=== PATIENT | male | born 1980 | race African-American/Black ===

== ENCOUNTER 2019-02-11 03:26 | Emergency (ER) | payer SELFPAY ==
[~2019-02-11] VITALS: Ht 182.9 cm; Wt 82.0 kg
[2019-02-11 03:45] VITALS: BP 158/96
== END 2019-02-11 03:54 | disposition left against medical advice (07) ==
LOC: ER 03:26
DX: Z53.21 Procedure and treatment not carried out due to patient leaving prior to being seen by health care provider (principal); F17.200 Nicotine dependence, unspecified, uncomplicated

== ENCOUNTER 2019-02-11 04:46 | Emergency (ER) | payer SELFPAY ==
[~2019-02-11] VITALS: Ht 185.4 cm; Wt 80.0 kg
[2019-02-11 05:13] LABS: BASOPHILS % 0.5 % (0.0-2.0); EOSINOPHILS % 0.3 % (0.0-5.0); HEMATOCRIT. 51.8 % (42.0-52.0); LYMPHOCYTES % 31.9 % (20.0-50.0); MEAN CORPUSCULAR HEMOGLOBIN 27.9 pg (28.0-32.0); MEAN CORPUSCULAR VOLUME 90.4 fL (80.0-94.0); MEAN PLATELET VOLUME 9.5 fl (7.4-10.4); MONOCYTES % 8.1 % (2.0-8.0); NEUTROPHILS % 59.2 % (40.0-76.0); PLATELET 265 x1000/uL (130-400); RED BLOOD CELL COUNT 5.73 mill/uL (4.7-6.1); RED CELL DISTRIBUTION WIDTH 14.9 % (11.6-14.6)
[2019-02-11] MEDS ORDERED: LORAZEPAM 2MG/ML CPJ IV ONE (05:15)
[2019-02-11 05:20] LABS: CHLORIDE 102 mEq/L (98-107)
[2019-02-11] MEDS ORDERED: SODIUM CHLORIDE 0.9% 1,000 ML IV ONE ×2 (05:21→05:41)
[2019-02-11 05:27] LABS: ETHANOL BLOOD < 10 mg/dL
[2019-02-11] MEDS ORDERED: DIPHENHYDRAMINE 50MG/ML VIAL IV ONE (05:30)
[2019-02-11 05:54] LABS: CLARITY URINE CLOUDY (CLEAR); COLOR URINE YELLOW (YELLOW); KETONES URINE TRACE (NEGATIVE); LEUKOCYTE ESTERASE URINE NEGATIVE (NEGATIVE); NITRITE URINE NEGATIVE (NEGATIVE); OCCULT BLOOD URINE 1+ (NEGATIVE); PH URINE 5.5 (4.5-8.0); PROTEIN URINE 1+ (NEGATIVE); SPECIFIC GRAVITY URINE 1.021 (1.005-1.030)
[2019-02-11 06:09] LABS: *BARBITURATES SCREEN URINE NEGATIVE (NEGATIVE)
[2019-02-11 06:10] LABS: *AMPHETAMINES SCREEN URINE PRESUMTIVE POSITIVE (NEGATIVE); *BENZODIAZEPINES SCREEN URINE NEGATIVE (NEGATIVE); *COCAINE SCREEN URINE PRESUMTIVE POSITIVE (NEGATIVE); METHADONE URINE SCREEN NEGATIVE (NEGATIVE); OPIATES URINE SCREEN NEGATIVE (NEGATIVE); PHENCYCLIDINE URINE SCREEN NEGATIVE (NEGATIVE)
[2019-02-11 06:11] LABS: CANNABINOID URINE SCREEN NEGATIVE (NEGATIVE)
[2019-02-11 06:17] LABS: BG BASE EXCESS -10.5 mmol/L (-2.0-2.0); BG CARBOXYHEMOGLOBIN 1.8 % (0.5-1.5); BG DEOXYHEMOGLOBIN 2.7 % (0.0-5.0); BG FRACTION INSPIRED OXYGEN 28; BG HCO3 ACT 15.4 mmol/L (22.0-26.0); BG METHEMOGLOBIN 0.4 % (0.0-1.5); BG OXYGEN SATURATION 97.2 % (92.0-98.5); BG OXYHEMOGLOBIN 95.1 % (94.0-97.0); BG PCO2 34.4 mmHg (35.0-45.0); BG PH 7.268 (7.350-7.450); BG PO2 112.3 mmHg (75.0-100.0); BG SAMPLE SITE RIGHT BRACHIAL; BG TOTAL HEMOGLOBIN 15.2 g/dL (12.0-18.0); BG VENT MODE NASAL CPAP
[2019-02-11] MEDS ORDERED: DEXT 5%/0.9% NACL 1,000 ML IV ONE ×2 (06:30→08:00)
[2019-02-11 06:45] LABS: CHLORIDE 110 mEq/L (98-107)
[2019-02-11 07:05] LABS: CREATINE KINASE 1729 IU/L (39-308)
[2019-02-11] MEDS ORDERED: SODIUM CHLORIDE 0.9% 1,000 ML IV SCH (11:54)
[2019-02-11] MEDS ORDERED: CLONIDINE 0.1MG TABLET PO PRN (12:00)
[2019-02-11] MEDS ORDERED: HALOPERIDOL LACTATE 5MG/ML VIAL IM PRN (12:00)
[2019-02-11] MEDS ORDERED: NITROGLYCERIN 0.4MG TABLET SL SL PRN (12:00)
[2019-02-11] MEDS ORDERED: KETOROLAC 15MG/ML VIAL IV PRN (12:00)
[2019-02-11] MEDS ORDERED: ONDANSETRON HCL 4MG/2ML INJ IV PRN (12:00)
[2019-02-11] MEDS ORDERED: DILTIAZEM HCL 60MG TABLET PO SCH (12:00)
[2019-02-11] MEDS ORDERED: DOCUSATE SODIUM 100MG CAPSULE PO PRN (12:00)
[2019-02-11] MEDS ORDERED: LORAZEPAM 0.5MG TABLET PO PRN (12:00)
[2019-02-11] MEDS ORDERED: GUAIFENESIN 200MG/10ML SUGAR FREE UDC PO PRN (12:00)
[2019-02-11] MEDS ORDERED: MAGNESIUM/ALUMINUM HYDROXIDE/SIMETHICONE 30ML UDC PO PRN (12:00)
[2019-02-11] MEDS ORDERED: ACETAMINOPHEN 325MG TABLET PO PRN (12:00)
[2019-02-11] MEDS ORDERED: ZOLPIDEM TARTRATE 5MG TABLET PO PRN (12:00)
[2019-02-11] MEDS ORDERED: IPRATROPIUM/ALBUTEROL 0.5-3(2.5)MG/3ML NEB NEB PRN (12:00)
[2019-02-11 13:50] VITALS: BP 164/78
[2019-02-11] MEDS ORDERED: CLINDAMYCIN 600 MG in DEXTROSE 5% WATER 50 ML IV SCH (14:00)
[2019-02-11] MEDS ORDERED: BENZTROPINE MESYLATE 1MG TABLET PO ONE (14:00)
[2019-02-11] MEDS ORDERED: LORAZEPAM 1MG TABLET PO ONE (14:00)
[2019-02-11] MEDS ORDERED: FAMOTIDINE 20MG TABLET PO SCH (21:00)
== END 2019-02-11 16:04 | disposition left against medical advice (07) ==
LOC: ER 04:46 → EDBEDREQ 09:26 → CANBEDREQ 15:53 → ER 16:04
DX: M62.82 Rhabdomyolysis (principal); E87.2 Acidosis; F16.10 Hallucinogen abuse, uncomplicated; Z78.1 Physical restraint status
CPT/HCPCS: 36415; 36600; 71045; 80048; 80053; 80305; 80307; 80320; 80329; 81003; 82010; 82375; 82550; 82805; 83605; 83735; 83880; 83930; 84484; 85025; 87040; 93005; 96361; 96374; 96375; 99284; J1200; J2060; J7030; J7042; A4315; G0480